=== PATIENT | female | born 1995 | race American Indian/Alaskan Native ===

== ENCOUNTER 2016-11-03 07:28 | Emergency (ER) | payer OTHER ==
[2016-11-03 07:53] VITALS: BP 112/78
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
--- NOTE | 2016-11-03 08:55 | XRay Report ---
FINAL REPORT PROCEDURE: XR ANKLE 3+V LT TECHNIQUE: AP, lateral, and oblique views of the left ankle are submitted. HISTORY: injury to ankle COMPARISON: None FINDINGS: Fracture of the distal tibial metaphysis and epiphysis old is present. Persistent partial lucency is noted as well as multiple overlying radiodensities. There is no dislocation. There is no osteochondral defect of the talar dome. Joint spaces are largely maintained. Suspected prior inserted and removed external fixation of the posterior calcaneus is seen. IMPRESSION: Old fracture of the distal tibia suspected. Partial nonunion or superimposed recent fracture is not excluded. Multiple overlying radiodensities/foreign bodies.
== END 2016-11-03 08:57 ==
LOC: ED 07:28
DX: S90.02XA Contusion of left ankle, initial encounter (principal); F17.200 Nicotine dependence, unspecified, uncomplicated; Z88.5 Allergy status to narcotic agent; W22.03XA Walked into furniture, initial encounter; Y93.89 Activity, other specified; Y99.8 Other external cause status; Y92.89 Other specified places as the place of occurrence of the external cause